=== PATIENT | female | born 1950 | race Two or more races ===

== ENCOUNTER 2017-12-22 07:44 | Outpatient (CLI) | payer OTHER | END 2017-12-22 09:46 | disposition home or self-care (01) | LOC: MAMO-SONO 07:44 | DX: Z12.31 Encounter for screening mammogram for malignant neoplasm of breast (principal); Z87.898 Personal history of other specified conditions; I10 Essential (primary) hypertension; M54.5 Low back pain; E78.9 Disorder of lipoprotein metabolism, unspecified; E55.9 Vitamin D deficiency, unspecified; E11.51 Type 2 diabetes mellitus with diabetic peripheral angiopathy without gangrene; E11.9 Type 2 diabetes mellitus without complications; M89.9 Disorder of bone, unspecified; G62.89 Other specified polyneuropathies; K21.9 Gastro-esophageal reflux disease without esophagitis; M54.14 Radiculopathy, thoracic region; M50.00 Cervical disc disorder with myelopathy, unspecified cervical region ==

== ENCOUNTER 2018-07-14 08:32 | Outpatient (CLI) | payer OTHER | END 2018-07-14 08:43 | disposition home or self-care (01) | LOC: LAB 08:32 | DX: M05.79 Rheumatoid arthritis with rheumatoid factor of multiple sites without organ or systems involvement (principal); I10 Essential (primary) hypertension; M54.5 Low back pain; E78.4 Other hyperlipidemia; E55.9 Vitamin D deficiency, unspecified; E11.51 Type 2 diabetes mellitus with diabetic peripheral angiopathy without gangrene; E11.9 Type 2 diabetes mellitus without complications; M89.9 Disorder of bone, unspecified; G62.89 Other specified polyneuropathies; K21.9 Gastro-esophageal reflux disease without esophagitis; M54.14 Radiculopathy, thoracic region; M50.00 Cervical disc disorder with myelopathy, unspecified cervical region ==

== ENCOUNTER 2018-11-30 08:39 | Outpatient (CLI) | payer OTHER | END 2018-11-30 09:11 | disposition home or self-care (01) | LOC: RAD 08:39 | DX: M54.5 Low back pain (principal) ==

== ENCOUNTER 2018-12-24 07:14 | Outpatient (CLI) | payer OTHER | END 2018-12-24 07:20 | disposition home or self-care (01) | LOC: MAMO-SONO 07:14 | DX: Z12.31 Encounter for screening mammogram for malignant neoplasm of breast (principal); Z87.898 Personal history of other specified conditions; N64.89 Other specified disorders of breast ==

== ENCOUNTER 2019-05-10 08:21 | Outpatient (CLI) | payer OTHER ==
[2019-05-17] MEDS ORDERED: ZOCOR40 MG PO (09:58)
[2019-05-17] MEDS ORDERED: METFORMIN HCL500 MG PO (09:59)
[2019-05-17] MEDS ORDERED: [UNRECOGNIZED DRUG - OTHER] PO (10:00)
[2019-05-17] MEDS ORDERED: LOSARTAN-HCTZ1 EAC1 PO (10:00)
[2019-05-17] MEDS ORDERED: GABAPENTIN800 MG PO (10:01)
[2019-05-17] MEDS ORDERED: ATENOLOL50 MG PO (10:01)
[2019-05-17] MEDS ORDERED: ALENDRONATE SOD70 MG PO (10:02)
[2019-05-17] MEDS ORDERED: NAPROXEN500 M1 (10:02)
[2019-05-17] MEDS ORDERED: SULFASALAZINE500 MG PO (10:02)
[2019-05-17] MEDS ORDERED: ABANEU-SL TABL1 EACH SL (10:03)
[2019-05-17] MEDS ORDERED: FOLGARD TABLET1 EACH PO (10:04)
== END 2019-05-10 14:58 | disposition home or self-care (01) ==
LOC: LAB 08:21
DX: M54.5 Low back pain (principal); I10 Essential (primary) hypertension; E78.89 Other lipoprotein metabolism disorders; E55.9 Vitamin D deficiency, unspecified; E11.51 Type 2 diabetes mellitus with diabetic peripheral angiopathy without gangrene; E11.9 Type 2 diabetes mellitus without complications; M89.8X8 Other specified disorders of bone, other site; G62.89 Other specified polyneuropathies; K21.9 Gastro-esophageal reflux disease without esophagitis; M54.14 Radiculopathy, thoracic region; M50.00 Cervical disc disorder with myelopathy, unspecified cervical region; R68.89 Other general symptoms and signs; R07.89 Other chest pain; D51.8 Other vitamin B12 deficiency anemias; M05.79 Rheumatoid arthritis with rheumatoid factor of multiple sites without organ or systems involvement; N39.0 Urinary tract infection, site not specified; E78.2 Mixed hyperlipidemia; D68.8 Other specified coagulation defects

== ENCOUNTER 2019-07-08 07:07 | Outpatient (CLI) | payer OTHER ==
[~2019-07-08 07:07] MED LIST: ABANEU-SL TABL1 EACH SL; ALENDRONATE SOD70 MG PO; ATENOLOL50 MG PO; FOLGARD TABLET1 EACH PO; GABAPENTIN800 MG PO; LOSARTAN-HCTZ1 EAC1 PO; METFORMIN HCL500 MG PO; NAPROXEN500 M1; PREDNISONE5 M1 PO; SULFASALAZINE500 MG PO; ZOCOR40 MG PO; [UNRECOGNIZED DRUG - OTHER] PO
== END 2019-07-08 07:21 | disposition home or self-care (01) ==
LOC: LAB 07:07
DX: D51.3 Other dietary vitamin B12 deficiency anemia (principal); D51.1 Vitamin B12 deficiency anemia due to selective vitamin B12 malabsorption with proteinuria; M06.89 Other specified rheumatoid arthritis, multiple sites; M85.88 Other specified disorders of bone density and structure, other site; E11.9 Type 2 diabetes mellitus without complications; I10 Essential (primary) hypertension; D50.8 Other iron deficiency anemias; D51.8 Other vitamin B12 deficiency anemias; D55.0 Anemia due to glucose-6-phosphate dehydrogenase [G6PD] deficiency; E03.8 Other specified hypothyroidism; E06.3 Autoimmune thyroiditis

== ENCOUNTER → 2019-09-14 07:44 | Outpatient (CLI) | payer OTHER | END | disposition home or self-care (01) | LOC: LAB 07:44 → RAD 07:44 | DX: D51.3 Other dietary vitamin B12 deficiency anemia (principal); D51.1 Vitamin B12 deficiency anemia due to selective vitamin B12 malabsorption with proteinuria; M06.89 Other specified rheumatoid arthritis, multiple sites; M85.88 Other specified disorders of bone density and structure, other site; E11.9 Type 2 diabetes mellitus without complications; I10 Essential (primary) hypertension; D50.8 Other iron deficiency anemias; D51.8 Other vitamin B12 deficiency anemias; D55.0 Anemia due to glucose-6-phosphate dehydrogenase [G6PD] deficiency; E03.8 Other specified hypothyroidism; E06.3 Autoimmune thyroiditis; M05.79 Rheumatoid arthritis with rheumatoid factor of multiple sites without organ or systems involvement ==

== ENCOUNTER 2020-07-26 08:37 | Outpatient (CLI) | payer OTHER | END 2020-07-26 08:47 | disposition home or self-care (01) | LOC: RAD 08:37 | PROVIDERS: ATTEND Orthopaedic Surgery | DX: M25.561 Pain in right knee (principal); M25.562 Pain in left knee ==

== ENCOUNTER 2021-12-10 07:15 | Outpatient (CLI) | payer OTHER | END 2021-12-10 07:28 | disposition home or self-care (01) | LOC: MRI 07:15 | PROVIDERS: ATTEND Orthopaedic Surgery | DX: M54.2 Cervicalgia (principal); M54.10 Radiculopathy, site unspecified; M25.511 Pain in right shoulder; M75.121 Complete rotator cuff tear or rupture of right shoulder, not specified as traumatic; M25.512 Pain in left shoulder; M75.122 Complete rotator cuff tear or rupture of left shoulder, not specified as traumatic | CPT/HCPCS: 72141; 73221 ==